=== PATIENT | female | born 1990 | race Two or more races ===

== ENCOUNTER 2017-08-18 13:36 | Emergency (ER) | payer OTHER ==
[~2017-08-18] VITALS: Ht 162.6 cm; Wt 43.1 kg
[~2017-08-18 13:36] MED LIST: ACETAMINOPHEN500 M1 PO; IRON18 MG PO; PRENATAL + DHA1 EAC1 PO; RHOGAM ULTR1500 UNIT IM; ZITHROMAX500 MG PO
== END 2017-08-18 19:36 | disposition home or self-care (01) ==
LOC: ER 13:36
DX: J11.1 Influenza due to unidentified influenza virus with other respiratory manifestations (principal); J06.9 Acute upper respiratory infection, unspecified

== ENCOUNTER 2017-12-19 10:35 | Emergency (ER) | payer OTHER ==
[~2017-12-19] VITALS: Ht 157.5 cm; Wt 54.4 kg
[2017-12-19] MEDS ORDERED: PHENERGAN25 MG PO (17:10)
[2017-12-19] MEDS ORDERED: ZANTAC150 MG PO (17:10)
[2017-12-19] MEDS ORDERED: INTESTINEX680 M1 PO (17:10)
== END 2017-12-19 17:58 | disposition home or self-care (01) ==
LOC: ER 10:35
DX: K52.9 Noninfective gastroenteritis and colitis, unspecified (principal)

== ENCOUNTER 2019-11-22 23:52 | Emergency (ER) | payer OTHER ==
[~2019-11-22] VITALS: Ht 152.4 cm; Wt 43.1 kg
[~2019-11-22 23:52] MED LIST changes: +INTESTINEX680 M1 PO; +PHENERGAN25 MG PO; +ZANTAC150 MG PO
[2019-11-23] MEDS ORDERED: OMEPRAZOLE40 MG (00:20)
[2019-11-23] MEDS ORDERED: PETCID (00:21)
[2019-11-23] MEDS ORDERED: MAALOX MAXIMUM355 ML PO (07:12)
[2019-11-23] MEDS ORDERED: PEPCID AC20 MG PO (07:12)
[2019-11-23] MEDS ORDERED: CARAFATE1 GM PO (07:12)
[2019-11-23] MEDS ORDERED: LANSOPRAZOLE30 MG PO (07:12)
== END 2019-11-23 07:49 ==
LOC: ER 23:52
DX: K29.60 Other gastritis without bleeding (principal)

== ENCOUNTER 2020-04-04 10:06 | Emergency (ER) | payer OTHER ==
[~2020-04-04] VITALS: Ht 152.4 cm; Wt 44.0 kg
[~2020-04-04 10:06] MED LIST changes: +CARAFATE1 GM PO; +LANSOPRAZOLE30 MG PO; +MAALOX MAXIMUM355 ML PO; +OMEPRAZOLE40 MG; +PEPCID AC20 MG PO; +PETCID
== END 2020-04-04 17:49 | disposition home or self-care (01) ==
LOC: ER 10:06
DX: K29.60 Other gastritis without bleeding (principal)